=== PATIENT | male | born 1960 | race African-American/Black ===

== ENCOUNTER 2017-09-16 15:11 | Emergency (ER) | payer SELFPAY ==
[~2017-09-16] VITALS: Ht 180.3 cm; Wt 100.0 kg
[2017-09-16] MEDS ORDERED: IBUP-1653 PO (15:20)
[2017-09-16 17:45] VITALS: BP 162/98
== END 2017-09-16 19:14 | disposition home or self-care (01) ==
LOC: ER 16:06
DX: K11.20 Sialoadenitis, unspecified (principal); H92.02 Otalgia, left ear; I10 Essential (primary) hypertension
CPT/HCPCS: 70486; 99284

== ENCOUNTER 2018-08-12 17:46 | Emergency (ER) | payer SELFPAY ==
[~2018-08-12] VITALS: Ht 180.3 cm; Wt 98.0 kg
[~2018-08-12 17:46] MED LIST: IBUP-1653 PO
[2018-08-12 20:39] LABS: BASOPHILS % 0.5 % (0.0-2.0); HEMATOCRIT. 41.6 % (42.0-52.0); HEMOGLOBIN. 13.4 g/dL (14.0-18.0); LYMPHOCYTES % 44.7 % (20.0-50.0); MEAN CORPUSCULAR HEMOGLOBIN 27.3 pg (28.0-32.0); MONOCYTES % 10.3 % (2.0-8.0); NEUTROPHILS % 41.5 % (40.0-76.0); PLATELET 228 x1000/uL (130-400); RED BLOOD CELL COUNT 4.89 mill/uL (4.7-6.1); RED CELL DISTRIBUTION WIDTH 14.2 % (11.6-14.6)
[2018-08-12 20:41] LABS: CHLORIDE 106 mEq/L (98-107)
[2018-08-12 20:45] LABS: D-DIMER 0.4 mg/L FEU (<0.50); INR 1.1; PROTHROMBIN TIME 10.7 sec (9.1-11.1)
[2018-08-12] MEDS ORDERED: KETOROLAC 30MG/ML VIAL IV ONE (21:45)
[2018-08-12 22:42] VITALS: BP 168/104
== END 2018-08-12 22:30 | disposition home or self-care (01) ==
LOC: ER 17:46
DX: M79.652 Pain in left thigh (principal); M79.672 Pain in left foot; I10 Essential (primary) hypertension; E78.00 Pure hypercholesterolemia, unspecified; I51.9 Heart disease, unspecified; Z79.899 Other long term (current) drug therapy; Z91.19 Patient's noncompliance with other medical treatment and regimen
CPT/HCPCS: 36415; 80053; 83605; 85025; 85379; 85610; 86140; 93971; 99285; J1885